=== PATIENT | male | born 1945 | race Caucasian/White ===

== ENCOUNTER 2016-11-20 13:18 | Inpatient (IN) | payer MEDICARE, OTHER ==
[2016-11-20] MEDS ORDERED: SODIUM CHLORIDE 0.9% 1000ML 1,000 ML IV ONE (13:38)
[2016-11-20] MEDS ORDERED: SODIUM CHLORIDE 0.9% FLUSH 10 ML SOL IV PRN (13:38)
[2016-11-20 14:03] LABS: BASOPHILS % (AUTO) 1 % (0-3); EOSINOPHILS % (AUTO) 0 % (0-9); HEMATOCRIT 44 % (39-53); MEAN CORPUSCULAR HGB CONC 34.9 gm/dl (32.0-36.0); MEAN CORPUSCULAR VOLUME 93 fL (80-100); MONOCYTES % (AUTO) 13.5 % (0-12); NEUTROPHILS % (AUTO) 67.9 % (37-80)
[2016-11-20 14:17] LABS: CALCIUM 8.1 mg/dl (8.5-10.1); GLOM FILT RATE 59 mL/min (>60); SODIUM 140 mMol/L (136-145)
[2016-11-20] MEDS ORDERED: ONDANSETRON HCL 4 MG/2 ML SOL IV PRN (14:43)
[2016-11-20] MEDS ORDERED: ALBUTEROL NEB SOL 2.5MG/3ML 1 VIAL SOL NEB PRN (14:43)
[2016-11-20] MEDS ORDERED: CEFTRIAXONE 1 GM (PREMIX) 1 GM/50 ML SOL IV SCH (14:45)
[2016-11-20] MEDS ORDERED: ACETAMINOPHEN 500 MG 500 MG TAB PO PRN (14:47)
[2016-11-20] MEDS ORDERED: DM/GUAIFENESIN SYRUP 10 ML SYRP PO SCH (15:00)
[2016-11-20] MEDS ORDERED: SODIUM CHLORIDE 0.9% 1000 ML SOL IV SCH (15:00)
[2016-11-20] MEDS ORDERED: WARFARIN SODIUM 3 MG TAB PO SCH ×2 (15:00→18:00)
[2016-11-20] MEDS ORDERED: CEFTRIAXONE 1 GM PDS ONE (15:57)
[2016-11-20] MEDS ORDERED: SODIUM CHLORIDE 0.9% 1000ML 1,000 ML IV SCH (16:00)
[2016-11-20] MEDS: SODIUM CHLORIDE 0.9% 1000ML 1,000 ML IV SCH (16:11)
[2016-11-20] MEDS: ALBUTEROL/IPRATROPIUM 1 VIAL SOL INH SCH ×2 (16:14→21:23)
[2016-11-20] MEDS ORDERED: CEFTRIAXONE 1 GM PDS 1 GM in SODIUM CHLORIDE 0.9% 100 ML 100 ML IV SCH (16:15)
[2016-11-20] MEDS ORDERED: DM/GUAIFENESIN SYRUP 10 ML SYRP PO PRN (17:36)
[2016-11-20] MEDS: CARVEDILOL 3.125 MG TAB PO SCH (18:20)
[2016-11-20] MEDS ORDERED: OSELTAMIVIR PHOSPHATE 75 MG CAP PO SCH (21:00)
[2016-11-20] MEDS ORDERED: DOCUSATE SODIUM 100 MG PO SCH (21:00)
[2016-11-20] MEDS: DOCUSATE SODIUM 100 MG SGL PO SCH (21:22)
[2016-11-20] MEDS: OSELTAMIVIR PHOSPHATE 75 MG CAP PO SCH ×2 (21:22→21:27)
[2016-11-21] MEDS: SODIUM CHLORIDE 0.9% 1000ML 1,000 ML IV SCH (00:58)
[2016-11-21] MEDS: ALBUTEROL/IPRATROPIUM 1 VIAL SOL INH SCH ×4 (03:08→20:15)
[2016-11-21 07:32] LABS: BASOPHILS % (AUTO) 2 % (0-3); EOSINOPHILS % (AUTO) 2 % (0-9); HEMATOCRIT 37 % (39-53); MEAN CORPUSCULAR HGB CONC 36.2 gm/dl (32.0-36.0); MEAN CORPUSCULAR VOLUME 93 fL (80-100); MONOCYTES % (AUTO) 20.9 % (0-12); NEUTROPHILS % (AUTO) 44.4 % (37-80)
[2016-11-21 07:35] LABS: CALCIUM 7.4 mg/dl (8.5-10.1); POTASSIUM 3.4 mMol/L (3.5-5.1)
[2016-11-21] MEDS: SODIUM CHLORIDE 0.9% FLUSH 10 ML SOL IV SCH ×2 (09:00→17:14)
[2016-11-21] MEDS: OSELTAMIVIR PHOSPHATE 75 MG CAP PO SCH ×2 (09:36→20:16)
[2016-11-21] MEDS: LISINOPRIL 5 MG TAB PO SCH (09:41)
[2016-11-21] MEDS: DOCUSATE SODIUM 100 MG SGL PO SCH ×2 (09:42→20:16)
[2016-11-21] MEDS: CARVEDILOL 3.125 MG TAB PO SCH ×2 (09:42→17:35)
[2016-11-21] MEDS: PHENYTOIN SODIUM, ER 100 MG CAPSULE PO SCH (09:43)
[2016-11-21] MEDS: MULTIVITAMIN2 1 EA TAB PO SCH (09:43)
[2016-11-21] MEDS: FOLIC ACID 1 MG TAB PO SCH (09:43)
[2016-11-21] MEDS: AZITHROMYCIN 250 MG TAB PO SCH (09:45)
[2016-11-21] MEDS ORDERED: WARFARIN SODIUM 1 MG TAB PO SCH (18:00)
[2016-11-21] MEDS ORDERED: PHENYTOIN 30 MG PO SCH (21:00)
[2016-11-22] MEDS: ALBUTEROL/IPRATROPIUM 1 VIAL SOL INH SCH ×2 (02:36→09:51)
[2016-11-22] MEDS: SODIUM CHLORIDE 0.9% FLUSH 10 ML SOL IV SCH ×2 (02:36→09:48)
[2016-11-22 07:23] LABS: BASOPHILS % (AUTO) 1 % (0-3); EOSINOPHILS % (AUTO) 5 % (0-9); HEMATOCRIT 39 % (39-53); MEAN CORPUSCULAR HGB CONC 35.3 gm/dl (32.0-36.0); MEAN CORPUSCULAR VOLUME 92 fL (80-100); MONOCYTES % (AUTO) 16.9 % (0-12); NEUTROPHILS % (AUTO) 44.1 % (37-80)
[2016-11-22 07:48] VITALS: BP 106/64; TEMP 98.9
[2016-11-22] MEDS: DOCUSATE SODIUM 100 MG SGL PO SCH (09:45)
[2016-11-22] MEDS: AZITHROMYCIN 250 MG TAB PO SCH (09:45)
[2016-11-22] MEDS: PHENYTOIN SODIUM, ER 100 MG CAPSULE PO SCH (09:46)
[2016-11-22] MEDS: CARVEDILOL 3.125 MG TAB PO SCH (09:46)
[2016-11-22] MEDS: FOLIC ACID 1 MG TAB PO SCH (09:46)
[2016-11-22] MEDS: MULTIVITAMIN2 1 EA TAB PO SCH (09:46)
[2016-11-22] MEDS: OSELTAMIVIR PHOSPHATE 75 MG CAP PO SCH (09:47)
[2016-11-22] MEDS: LISINOPRIL 5 MG TAB PO SCH (09:47)
[2016-11-22 10:18] VITALS: PULSE 88; RESP 22; O2SAT 96
== END 2016-11-22 10:30 | disposition home or self-care (01) | DRG 195 ==
LOC: ED 13:18 → ACUTE CARE 14:32 → UNDOADMIN 14:32 → ACUTE CARE 14:50
PROVIDERS: ADMIT Emergency Medicine; ATTEND Emergency Medicine
DX: J11.00 Influenza due to unidentified influenza virus with unspecified type of pneumonia (principal); J09.X1 Influenza due to identified novel influenza A virus with pneumonia
CPT/HCPCS: 36415; 71010; 80048; 84484; 85025; 85610; 87040; 87804; 93005; 94640; 96365; 99070; 99221; 99283; J0696; J2405; J7603; J7620